=== PATIENT | male | born 1990 | race Caucasian/White ===

== ENCOUNTER 2017-10-09 01:31 | Emergency (ER) | payer SELFPAY ==
[~2017-10-09] VITALS: Ht 180.3 cm; Wt 86.2 kg
[2017-10-09 01:46] VITALS: BP 0/0
--- NOTE | 2017-10-09 04:09 | Emergency Room Report ---
History of Present Illness General Chief Complaint: Medical Clearance Source: Patient Present Illness HPI 26-year-old male presents ED for evaluation. Patient and [employer] custody. Is here for [facility] clearance. Upon arrival patient is noncooperative, agitated and combative. In handcuffs. Complaining of bilateral wrist pain. Denies any other injuries. Denies alcohol or drug use. No other aggravating relieving factors. Denies any other associated symptoms Allergies: Coded Allergies: UNABLE TO ASSESS (Unverified , 10/09/17) Patient refused to answer Patient History Past Medical History: none Past Surgical History: none Pertinent Family History: none Social History: Denies: smoking, alcohol use, drug use Immunizations: UTD Reviewed Nursing Documentation: PMH: Agreed; PSxH: Agreed Nursing Documentation-PMH Past Medical History: Deferred Review of Systems All Other Systems: negative except mentioned in HPI Physical Exam Vital Signs Date Time Temp Pulse Resp B/P (MAP) Pulse Ox O2 Delivery O2 Flow Rate FiO2 10/09/17 01:46 0/0 Sp02 EP Interpretation: reviewed, normal General Appearance: alert, GCS 15, non-toxic, other - agitated Head: normocephalic, atraumatic Eyes: bilateral eye normal inspection, bilateral eye PERRL ENT: hearing grossly normal, normal pharynx, no angioedema, normal voice Neck: full range of motion, supple/symm/no masses Respiratory: chest non-tender, lungs clear, normal breath sounds, speaking full sentences Cardiovascular #1: regular rate, rhythm, no edema Cardiovascular #2: 2+ carotid (R), 2+ carotid (L), 2+ radial (R), 2+ radial (L) , 2+ dorsalis pedis (R), 2+ dorsalis pedis (L) Gastrointestinal: normal bowel sounds, non tender, soft, non-distended, no guarding, no rebound Rectal: deferred Genitourinary: normal inspection, no CVA tenderness Musculoskeletal: back normal, gait/station normal, normal range of motion, non- tender Neurologic: alert, responsive, motor strength/tone normal, sensory intact, speech normal Psychiatric: no suicidal/homicidal ideation, other - agitated Reflexes: 3+ bicep (R), 3+ bicep (L), 3+ tricep (R), 3+ tricep (L), 3+ knee (R) , 3+ knee (L) Skin: normal color, no rash, warm/dry, well hydrated Lymphatic: no adenopathy Medical Decision Making Diagnostic Impression: Primary Impression: Medical clearance for incarceration ER Course Hospital Course 26-year-old male presents to ED for and [facility] clearance. Complaining of bilateral wrist pain Clinical course Patient placed on stretcher. Handcuffs. After initial history, physical exam reveals a young male. I asked [employer] to uncuffed the patient. There is no deformity or bruising to the wrist. Full range of motion. Good capillary refill and color. Pulses intact. Symptoms likely due to handcuffs being too tight. I asked [employer] to loosen the handcuffs I believe patient be safely discharged into police custody. Diagnosis - medical clearance for incarceration stable and discharged into police custody Last Vital Signs Date Time Temp Pulse Resp B/P (MAP) Pulse Ox O2 Delivery O2 Flow Rate FiO2 10/09/17 01:46 0/0 Status: improved Disposition: D/C TO LAW ENFORCEMENT IN CUST Condition: Stable Referrals: NOT CHOSEN IPA/,REFERRING (PCP) Departure Forms: Skilled Nursing Clearance Patient Instructions: Wrist Pain, [id number] Sanjiv Harrison MD Oct 09, 2017 04:09
== END 2017-10-09 02:20 ==
LOC: EMR 02:00
DX: Z02.89 Encounter for other administrative examinations (principal)
CPT/HCPCS: 99283